=== PATIENT | female | born 1990 | race Caucasian/White ===

== ENCOUNTER 2024-05-05 22:58 | Emergency (ER) | payer OTHER, SELFPAY ==
--- NOTE | 2024-05-06 00:22 | RAD REPORT ---
EXAM DESCRIPTION: CT ABDOMEN PELVIS WITHOUT IV CONTRAST CLINICAL HISTORY: 34 years Female Flank pain. COMPARISON: None. TECHNIQUE: Images were obtained in axial, coronal and sagittal planes. No contrast administration. This exam was performed according to our departmental dose-optimization program which includes use of Automated Exposure Control, adjustment of the mA and/or kV according to patient size and/or use of iterative re construction technique. FINDINGS: No abnormality involving the liver, spleen, pancreas, gallbladder, and adrenal glands bilaterally. 2 mm calculus distal left ureter just proximal to ureterovesicular junction. Associated mild left hyd ronephrosis and hydroureter. Punctate nonobstructing calcification inferior left kidney. No obstructing renal or ureteral calculi on the right. No hydronephrosis or hydroureter on the right. Un remarkable bladder. Unremarkable uterus. Appendix within normal limits. No bowel obstruction, perforation, or inflammation. No dilatation of abdominal aorta. No adenopathy or abnormal fluid collections seen. No abnormalities in lower lungs bilaterally. No acute osseous abnormality. IMPRESSION: 2 mm calculus distal left ureter just proximal to ureterovesicular junction with associated mild left hydronephrosis and hydroureter. Punctate nonobstructing calcification inferior left kidney. Otherwise unremarkable study. Electronically signed by: Lila Martinez MD 05/06/2024 12:06 AM CDT RP Due to temporary technical issues with the PACS/[employer] reporting system, reports are being helen d by the in-house radiologist without review as a courtesy to ensure prompt reporting the interpreting radiologist is fully responsible for the content of the report. Transcribed Date/Time: 05/06/2024 12:22 AM
[2024-05-06 02:10] LABS: Absolute Lymphocytes (CBC) 1.3 K/uL (0.7-4.9); Absolute Monocytes 0.3 K/uL (0.1-1.3); Absolute Neutrophil 11.7 K/uL (1.8-8.0); Basophils % 0.2 % (0-1.3); Hematocrit 36.2 % (36.0-45.0); Hemoglobin 11.8 g/dL (12.0-15.0); Lymphocytes % 9.8 % (15.3-44.8); MCH 23.6 pg (27.0-35.0); MCHC 32.5 g/dL (32.0-36.0); MCV 72.5 fL (80-100); MPV 8.1 fL (7.6-11.3); Monocytes % 2.5 % (3.3-12.3); Neutrophils % 87.5 % (41.7-73.7); Platelets 332 thou/uL (152-406); Red Cell Distribution Width 16.1 % (12.1-15.2)
[2024-05-06] MEDS ORDERED: KETOROLAC 30 MG/ML INJ ONE (02:18)
[2024-05-06] MEDS ORDERED: ONDANSETRON 4 MG/2 ML VIAL ONE (02:18)
[2024-05-06] MEDS ORDERED: NA CHLORIDE 0.9% 1,000 ML ONE (02:19)
[2024-05-06] MEDS ORDERED: MORPHINE 4 MG/ML SYR ONE (02:19)
[2024-05-06 02:29] LABS: Albumin 3.7 g/dL (3.4-5.0); Albumin/Globulin Ratio 0.8 (1.1-1.8); Anion Gap 9.7 mEq/L (5.0-15.0); Bilirubin Total 0.4 mg/dL (0.2-1.0); Globulin 4.8 g/dL (2.3-3.5); Potassium 3.7 mEq/L (3.5-5.1); Protein, Total 8.5 g/dL (6.4-8.2)
[2024-05-06] MEDS ORDERED: TAMSULOSIN 0.4 MG SR CAP ONE (03:34)
[2024-05-06 03:40] LABS: Blood Morphology Comment NOT SEEN (NOT SEEN); Platelet Estimate ADEQ; White Blood Cell Scan OK (OK)
[2024-05-06 03:42] LABS: Specific Gravity > 1.030 (1.005-1.030)
[2024-05-06 03:46] LABS: Specific Gravity > 1.030 (1.005-1.030); Urine Bacteria <20 /HPF (<20); Urine Bilirubin NEGATIVE (Negative); Urine Blood 3+ (OVER) (Negative); Urine Clarity Extremely Turbid (Clear); Urine Color Yellow (Yellow); Urine Crystals Unidentified Few /HPF (None Seen); Urine Culture Reflex Order NOT NEEDED; Urine Glucose NEGATIVE (Negative); Urine Ketones 3+ (Negative); Urine Microscopic Reflex YN ORDER UMIC; Urine Mucus Slight /HPF (None Seen); Urine Nitrite NEGATIVE (Negative); Urine Protein 1+ (Negative); Urine RBC >50 /HPF (None Seen); Urine Urobilinogen Normal (Normal); Urine WBC <5 /HPF (<5)
--- NOTE | 2024-05-06 04:07 | ER ---
Nurse's Notes [facility] Name: Syeda Daugherty Age: 34 yrs Sex: Female : 1990 Arrival Date: 05/05/2024 Time: 22:58 Bed 11 Private MD: Diagnosis: Acute left ureteral calculus, Acute renal colic Presentation: 05/05 23:06 Chief complaint: Patient states: left flank pain 10/10, sharp that started suddenly at ma1 9 pm. Coronavirus screen: Vaccine status: Patient reports receiving the 2nd dose of the covid vaccine. Ebola Screen: No symptoms or risks identified at this time. Initial Sepsis Screen: Does the patient meet any 2 criteria? No. Patient's initial sepsis screen is negative. Does the patient have a suspected source of infection? No. Patient's initial sepsis screen is negative. Risk Assessment: Do you want to hurt yourself or someone else? Patient reports no desire to harm self or others. Onset of symptoms was May 05, 2024 at 21:00. 23:06 Method Of Arrival: Ambulatory [place] 23:06 Acuity: SHAHAB 3 me1 Triage Assessment: 05/06 01:00 General: Appears uncomfortable, Behavior is calm, cooperative, anxious. 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 - Infectious Disease History:: Denies. - Social history:: Smoking status: Reported history of juuling and/or vaping. Screenin/26 01:[address] [facility] ED Fall Risk Assessment (Adult) History of falling in the last 3 months, br2 including since admission No falls in past 3 months (0 pts) Confusion or Disorientation No (0 pts) Intoxicated or Sedated No (0 pts) Impaired Gait No (0 pts) Mobility Assist Device Used No (0 pt) Altered Elimination No (0 pt) Score/Fall Risk Level 0 - 2 = Low Risk Oriented to surroundings. Abuse screen: Denies threats or abuse. Denies injuries from another. Nutritional screening: No deficits noted. Tuberculosis screening: No symptoms or risk factors identified. Assessment: 01:00 Pain: Complains of pain in left lower back. Neuro: [place] Agitation-Sedation Scale br2 (RASS): 0 - Alert and Calm Level of Consciousness is awake, alert, obeys commands, Oriented to time, situation. GI: GI: Bowel sounds present X 4 quads. Abd is soft and non tender. Vital Signs: 05/05 23:06 BP 142 / 74; Pulse 75; Resp 20; Temp 97.5; Pulse Ox 98% ; Weight 90.72 kg; Height 5 ft. me1 3 in. ; Pain 10/10; 05/06 04:30 BP 105 / 62; Pulse 75; Resp 18; Temp 97.2; Pulse Ox 100% ; Pain 0/10; br2 05/05 23:06 Body Mass Index 35.43 (90.72 kg, 160.02 cm) me1 05/05 23:06 Pain Scale: Adult me1 05/06 04:30 Pain Scale: Adult br2 ED Course: 05/05 23:01 Patient arrived in ED. gm2 23:06 Jennifer Felipe FNP-C is [facility]. kb 23:06 Micheal Santos MD is Attending Physician. kb 23:09 Triage completed. me1 23:09 Arm band placed on Patient placed in waiting room. me1 23:29 CT Stone Protocol In Process Unspecified. EDMS 05/06 01:00 Patient has correct armband on for positive identification. Bed in low position. Call br2 light in reach. Side rails up X 1. Provided Education on: PLAN OF CARE. 01:58 Inserted saline lock: 20 gauge in right antecubital area, using aseptic technique. rv1 Blood collected. Flushed with 10 mL NS. 01:58 CBC with Diff Sent. rv1 01:58 CMP Sent. rv1 01:58 Lipase Sent. rv1 02:57 María Yu, JERICA is Primary Nurse. br2 04:06 Mario Fiore MD is Referral Physician. sp4 04:40 No provider procedures requiring assistance completed. IV discontinued, intact, br2 bleeding controlled, No redness/swelling at site. Pressure dressing applied. Administered Medications: 02:40 Drug: Ondansetron IVP 4 mg IVP once; over 2 minutes Route: IVP; Site: right antecubital;br2 03:00 Follow up: Response: No adverse reaction br2 02:40 Drug: morphine IVP or IV 4 mg IVP once over 4 mins Route: IVP; Infused Over: 4 mins; br2 Site: right antecubital; 03:00 Follow up: Response: No adverse reaction br2 02:40 Drug: NS 0.9% IV 1000 ml IV at 1 bolus Per protocol; to be given as a bolus over 60 br2 minutes Route: IV; Rate: 1 bolus; Site: right antecubital; 03:40 Follow up: IV Status: Completed infusion; IV Intake: 1000ml br2 02:57 Drug: Ketorolac IVP 15 mg IVP once Route: IVP; Site: right antecubital; br2 03:30 Follow up: Response: No adverse reaction br2 03:37 Drug: Flomax PO 0.8 mg PO once Route: PO; br2 04:00 Follow up: Response: Medication administered at discharge. br2 Medication: 04:40 VIS not applicable for this client. br2 Intake: 03:40 IV: 1000ml; Total: 1000ml. br2 Outcome: 04:07 Discharge ordered by . sp4 04:40 Discharged to home ambulatory, br2 04:40 Condition: improved 04:40 Discharge instructions given to patient, Instructed on discharge instructions, follow up and referral plans. Demonstrated understanding of instructions, follow-up care, medications, Prescriptions given X 4, 04:53 Patient left the ED. br2 Signatures: Dispatcher [employer] EDJennifer Kraus, WHOLESALE ACCOUNT MANAGER-C WHOLESALE ACCOUNT MANAGER-Allyson Arevalo rv1 Micheal Santos MD MD sp4 Constance Bridges RN RN me1 Shirley Goldstein gm2 María Yu RN RN br2 Corrections: (The following items were deleted from the chart) 05/05 23:09 23:09 Allergies: Aspirin; me1 me1
--- NOTE | 2024-05-06 04:07 | EDPHYS ---
Physician Documentation [facility] Name: Syeda Daugherty Age: 34 yrs Sex: Female : 1990 Arrival Date: 05/05/2024 Time: 22:58 Bed 11 Private MD: ED Physician Micheal Santos HPI: 05/06 00:16 This 34 yrs old Female presents to ER via Ambulatory with complaints of Possible Kidney kb Stone, Nausea/Vomiting, Back Pain. 00:16 Patient is a 34-year-old female who presents for left flank pain that started suddenly kb at 2100 this morning. Denies nausea, vomiting, urinary symptoms, fever. Has never had symptoms like this before. Denies injury or trauma.. 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 - Infectious Disease History:: Denies. - Social history:: Smoking status: Reported history of juuling and/or vaping. ROS: 05/06 00:16 Constitutional: As per HPI kb Exam: 00:16 Constitutional: This is a well developed, well nourished patient who is awake, alert, kb and in no acute distress. Head/Face: Normocephalic, atraumatic. ENT: Moist Mucous membranes Cardiovascular: Regular rate Respiratory: Respirations even and unlabored. No increased work of breathing. Talking in full sentences Skin: Warm, dry with normal turgor. Normal color. MS/ Extremity: Pulses equal, no cyanosis. Neurovascular intact. Full, normal range of motion. Neuro: Awake and alert, GCS 15, oriented to person, place, time, and situation. 00:16 Abdomen/GI: Inspection: abdomen appears normal, Bowel sounds: normal, Palpation: soft, in all quadrants, mild abdominal tenderness, in the left upper quadrant, 00:16 Back: CVA tenderness, that is moderate, is noted on the left, Vital Signs: 05/05 23:06 BP 142 / 74; Pulse 75; Resp 20; Temp 97.5; Pulse Ox 98% ; Weight 90.72 kg; Height 5 ft. me1 3 in. ; Pain 10/10; 05/06 04:30 BP 105 / 62; Pulse 75; Resp 18; Temp 97.2; Pulse Ox 100% ; Pain 0/10; br2 05/05 23:06 Body Mass Index 35.43 (90.72 kg, 160.02 cm) me1 05/05 23:06 Pain Scale: Adult me1 05/06 04:30 Pain Scale: Adult br2 MDM: 05/05 23:06 Medical Screening Exam initiated kb 05/06 00:17 Differential diagnosis: UTI, muscle strain, kidney stone. Data reviewed: vital signs, kb nurses notes. 00:32 Transition of care: After a detail discussion of the patient's case, care is kb transferred to Micheal Santos MD. 03:55 Differential diagnosis: Nonspecific abd pain, gastritis, viral gastroenteritis, sp4 gastroenteritis. 05/05 23:09 Order name: CBC with Diff; Complete Time: 03:50 kb 05/05 23:09 Order name: CMP; Complete Time: 03:25 kb 05/05 23:09 Order name: Lipase; Complete Time: 03:25 kb 05/05 23:09 Order name: Test, Urine; Complete Time: 03:50 kb 05/05 23:09 Order name: Urinalysis w/ reflexes; Complete Time: 03:50 kb 05/06 03:43 Order name: CBC Smear Scan EDMS 05/05 23:10 Order name: CT Stone Protocol; Complete Time: 00:36 kb 05/05 23:10 Order name: IV Saline Lock; Complete Time: 01:58 kb 05/05 23:10 Order name: Labs collected and sent; Complete Time: 01:58 kb Administered Medications: 02:40 Drug: Ondansetron IVP 4 mg IVP once; over 2 minutes Route: IVP; Site: right antecubital;br2 03:00 Follow up: Response: No adverse reaction br2 02:40 Drug: morphine IVP or IV 4 mg IVP once over 4 mins Route: IVP; Infused Over: 4 mins; br2 Site: right antecubital; 03:00 Follow up: Response: No adverse reaction br2 02:40 Drug: NS 0.9% IV 1000 ml IV at 1 bolus Per protocol; to be given as a bolus over 60 br2 minutes Route: IV; Rate: 1 bolus; Site: right antecubital; 03:40 Follow up: IV Status: Completed infusion; IV Intake: 1000ml br2 02:57 Drug: Ketorolac IVP 15 mg IVP once Route: IVP; Site: right antecubital; br2 03:30 Follow up: Response: No adverse reaction br2 03:37 Drug: Flomax PO 0.8 mg PO once Route: PO; br2 04:00 Follow up: Response: Medication administered at discharge. br2 Disposition: 03:52 Co-signature as Attending Physician, Micheal Santos MD I agree with the assessment sp4 and plan of care. I reviewed the patient's care provided by Advanced Practice Provider \T\ agree w/ the diagnosis \T\ care plan. I personally saw the pt \T\ performed a substantive portion of the visit, incldng all aspects of the (History/Exam/Medical Decision Making). Disposition Summary: 05/06/24 04:07 Discharge Ordered Notes: Location: Home sp4 Problem: new sp4 Symptoms: have improved sp4 Condition: Stable sp4 Diagnosis - Acute left ureteral calculus, Acute renal colic sp4 Followup: sp4 - With: Mario Fiore MD - When: 7 - 10 days - Reason: Recheck today's complaints Discharge Instructions: - Discharge Summary Sheet sp4 - Kidney Stones, [id number] sp4 Forms: - Patient Portal Instructions sp4 - Work release form [facility] Prescriptions: - Flomax 0.4 mg Oral capsule - take 1 capsule ORAL route every 24 hours for 30 days; 30 capsule; Refills: 0, sp4 Product Selection Permitted - ketorolac 10 mg Oral tablet - take 1 tablet ORAL route every 8 hours for 6 days PRN pain; 30 tablet; Refills: sp4 0, Product Selection Permitted - ondansetron 8 mg Oral Tablet,disintegrating - take 1 tablet ORAL route every 8 hours for 24 hours PRN nausea; 30 tablet; sp4 Refills: 0, Product Selection Permitted - Tramadol 50 mg Oral tablet - take 1 tablet ORAL route every 8 hours as needed; 20 tablet; Refills: 0, sp4 Product Selection Permitted Signatures: Dispatcher [employer] Jennifer Schroeder, CAMPBELL-C EARTHMOVING PLANT OPERATOR-Micheal Ruffin MD MD sp4 Constance Bridges, RN RN me1 María Yu RN RN br2 Corrections: (The following items were deleted from the chart) 05/05 23:09 23:09 Allergies: Aspirin; me1 me1 23:10 23:10 CBC+H.LAB.BRZ ordered. EDMS EDMS 23:10 23:10 COMPREHENSIVE METABOLIC PANEL+C.LAB.BRZ ordered. EDMS EDMS 23:10 23:10 LIPASE+C.LAB.BRZ ordered. EDMS EDMS 23:10 23:10 Test, Urine+UC.LAB.BRZ ordered. EDMS EDMS 23:10 23:10 Urinalysis+U.LAB.BRZ ordered. EDMS EDMS
[2024-05-06 05:10] VITALS: BP 105/62; TEMP 97.2; O2SAT 100
== END 2024-05-06 04:53 | disposition home or self-care (01) ==
LOC: ER 22:58
DX: N20.1 Calculus of ureter (principal); N23 Unspecified renal colic
CPT/HCPCS: 36415; 74176; 76377; 80053; 81001; 81025; 83690; 85025; J2405; J7030